=== PATIENT | male | born 1995 ===

== ENCOUNTER 2017-05-04 11:14 | Emergency (ER) | payer SELFPAY ==
[~2017-05-04] VITALS: Ht 175.3 cm; Wt 80.0 kg
[2017-05-04 11:17] VITALS: BP 130/68; PULSE 86; RESP 16; TEMP 97.6; O2SAT 98
--- NOTE | 2017-05-04 11:43 | PD ---
HPI Chief Complaint: Complaint Time Seen by Provider: 11:25 Travel History International Travel<30 days: No Contact w/Intl Traveler<30days: No Traveled to known affect area: No History of Present Illness HPI 21-year-old male presents to the ED for evaluation of 2 day history of dysuria. Patient denies fevers, chills, abdominal pain, nausea, vomiting, testicular pain. He endorses a small painless area on tip of the penis. Patient endorses sex with a single male partner. He states that his partner just tested positive for syphilis, gonorrhea and chlamydia. PFSH Social History Tobacco Use: No Allergies-Medications (Allergen,Severity, Reaction): Coded Allergies: No Known Allergies (Unverified , 05/04/17) Review of Systems Except as stated in HPI: all other systems reviewed are Neg Physical Exam Narrative GENERAL: Well-nourished, well-developed male in no acute distress. SKIN: Focused skin assessment warm/dry. HEAD: Normocephalic. EYES: No scleral icterus. No injection or drainage. NECK: Supple, trachea midline. No JVD or lymphadenopathy. CARDIOVASCULAR: Regular rate and rhythm without murmurs, gallops, or rubs. RESPIRATORY: Breath sounds equal bilaterally. No accessory muscle use. GASTROINTESTINAL: Abdomen soft, non-tender, nondistended. Active bowel sounds. GENITOURINARY: Circumcised. Testes descended bilaterally without evidence of rotation. Single erythematous, nontender subcentimeter lesion on the tip of the penis. No erythema or lesions. No urethral discharge. MUSCULOSKELETAL: No cyanosis, or edema. BACK: Nontender without obvious deformity. No CVA tenderness. Data Data Last Documented VS Vital Signs Date Time Temp Pulse Resp B/P (MAP) Pulse Ox O2 Delivery O2 Flow Rate FiO2 05/04/17 11:17 97.6 86 16 130/68 (88) 98 Orders Orders Urinalysis - C+S If Indicated (05/04/17 11:23) Gc And Chlamydia Pcr (05/04/17 11:23) Azithromycin (Zithromax) (05/04/17 11:45) Ceftriaxone Inj (Rocephin Inj) (05/04/17 11:45) Penicillin G Benzathine Inj (Bicillin L- (05/04/17 11:45) Lidocaine Pf 1% Inj (Xylocaine-Mpf 1% In (05/04/17 12:15) Ed Discharge Order (05/04/17 12:09) Labs Laboratory Tests Test 05/04/17 11:30 Urine Color LIGHT-YELLOW Urine Turbidity CLEAR Urine pH 6.5 Urine Specific [place] 1.019 Urine Protein NEG mg/dL Urine Glucose (UA) NEG mg/dL Urine Ketones 10 mg/dL Urine Occult Blood NEG Urine Nitrite NEG Urine Bilirubin NEG Urine Urobilinogen LESS THAN 2.0 MG/DL Urine Leukocyte Esterase NEG Urine WBC LESS THAN 1 /hpf Urine Squamous Epithelial Cells <1 /hpf Microscopic Urinalysis Comment CULT NOT INDICATED MDM Medical Decision Making Medical Screen Exam Complete: Yes Emergency Medical Condition: Yes Differential Diagnosis UTI versus gonorrhea versus chlamydia versus syphilis versus other Narrative Course 21-year-old male presents to the ED for evaluation of 2 day history of dysuria. Patient denies fevers, chills, abdominal pain, nausea, vomiting, testicular pain. He endorses a small painless area on tip of the penis. Patient endorses sex with a single male partner. He states that his partner just tested positive for syphilis, gonorrhea and chlamydia. Vitals reviewed. On exam there is a subcentimeter erythematous, coin-shaped, nontender lesion of the tip of the penis. Exam otherwise unremarkable. Patient was treated empirically for gonorrhea, chlamydia, syphilis. No culture indicated of the UA. He is instructed to abstain from sex, notify all partners of symptoms, follow with the health Department for test of cure and a full battery of STD testing before resuming sexual activities. He indicated understanding of instructions. He is agreeable the care plan. He is stable and discharged home. Diagnosis Primary Impression: Exposure to STD Referrals: [facility]. Additional Instructions: USE CONDOMS in all sexual encounters. Abstain from sex until test of cure is proven. Follow up with the health department for a full battery of STD testing. Return to the ED for any urgent/ emergent medical condition. Disposition: 01 DISCHARGE HOME Condition: Stable Seda Vargas May 04, 2017 11:43
[2017-05-04] MEDS ORDERED: LIDOCAINE HCL 1% 50 ML VIAL XX ONE (11:45)
[2017-05-04] MEDS ORDERED: AZITHROMYCIN 250 MG TAB PO ONE (11:45)
[2017-05-04] MEDS ORDERED: PENICILLIN G BENZATHINE 2,400,000 UNITS/4 ML SYRINGE IM ONE (11:45)
[2017-05-04 12:06] LABS: BILIRUBIN, URINE NEG (NEG); BLOOD, URINE NEG (NEG); GLUCOSE,URINE NEG (NEG); KETONE, URINE 10 mg/dL (NEG); NITRITE,URINE NEG (NEG); PH, URINE 6.5 (5.0-8.5); SQUAMOUS EPITHELIAL CELL URINE <1 /hpf (0-5); URINE COLOR LIGHT-YELLOW (YELLW/STRAW); URINE LEUKOCYTE ESTERASE NEG (NEG)
[2017-05-04] MEDS ORDERED: LIDOCAINE HCL 1% PF 2 ML VIAL INFIL ONE (12:15)
[2017-05-04] MEDS ORDERED: LIDOCAINE HCL 1% PF 30 ML VIAL INFIL ONE (13:00)
== END 2017-05-04 13:36 | disposition home or self-care (01) ==
LOC: NEPK 11:14
DX: R30.0 Dysuria (principal); Z20.2 Contact with and (suspected) exposure to infections with a predominantly sexual mode of transmission
CPT/HCPCS: 81001; 87491; 87591; 96372; 99283; J0561; J0696

== ENCOUNTER 2017-05-08 07:46 | Emergency (ER) | payer SELFPAY ==
[~2017-05-08] VITALS: Ht 175.3 cm; Wt 83.0 kg
[2017-05-08 08:06] VITALS: BP 147/66; PULSE 88; RESP 20; TEMP 97.7; O2SAT 99
[2017-05-08] MEDS ORDERED: BACT800T5 PO (09:27)
--- NOTE | 2017-05-08 09:36 | PD ---
HPI Chief Complaint: Skin Problem Time Seen by Provider: 09:21 Travel History International Travel<30 days: No Contact w/Intl Traveler<30days: No Traveled to known affect area: No History of Present Illness HPI 21-year-old male presents to the emergency room for evaluation of a red, warm, tender area to his right buttocks that started yesterday. Patient was treated empirically for gonorrhea, chlamydia, and syphilis with 2 IM injections 4 days ago on his right buttocks. States he had no problems until yesterday when he developed a small quarter-size area of painful redness and swelling. The area did not develop until a few hours after patient self injected anabolic steroids to the same buttocks. States he has been doing this every year for the past 4 years without problem. He has not taken anything or done anything for his symptoms. Patient denies fever, chills, nausea, or vomiting. No chronic medical conditions or daily medications. PFSH Past Medical History Medical History: Denies Significant Hx Tetanus Vaccination: < 5 Years Past Surgical History Surgical History: No Previous Surgery Social History Alcohol Use: No Tobacco Use: No Substance Use: No Allergies-Medications (Allergen,Severity, Reaction): Coded Allergies: No Known Allergies (Unverified , 05/08/17) Reported Meds & Prescriptions Reported Meds & Active Scripts Active No Active Prescriptions or Reported Medications Review of Systems Except as stated in HPI: all other systems reviewed are Neg Physical Exam Narrative GENERAL: Well-nourished, well-developed male in no acute distress. Afebrile. Ambulatory. SKIN: Focused skin assessment warm/dry. There is an indurated, erythematous area in the right buttock which measures about 4 cm in diameter. No fluctuance , pointing, or drainage. No lymphangitis. HEAD: Normocephalic. EYES: No scleral icterus. No injection or drainage. NECK: Supple, trachea midline. No JVD or lymphadenopathy. CARDIOVASCULAR: Regular rate and rhythm without murmurs, gallops, or rubs. RESPIRATORY: Breath sounds equal bilaterally. No accessory muscle use. MUSCULOSKELETAL: No cyanosis, or edema. Data Data Last Documented VS Vital Signs Date Time Temp Pulse Resp B/P (MAP) Pulse Ox O2 Delivery O2 Flow Rate FiO2 05/08/17 08:06 97.7 88 20 147/66 (93) 99 MDM Medical Decision Making Medical Screen Exam Complete: Yes Emergency Medical Condition: Yes Medical Record Reviewed: Yes Differential Diagnosis Cellulitis, injection site infection, inflammation, abscess Narrative Course 21-year-old otherwise healthy male presents to the emergency room for evaluation of a red, painful bump to his buttocks that started yesterday as a small quarter size and has grown into about 4 cm. Patient denies systemic signs of infection. Vital signs stable. He got 2 IM injections 4 days ago for STDs on that side and then self injected anabolic steroids last night on the same side. He did not notice it until a few hours after injecting anabolic steroids last night. Physical exam reveals a 4 cm area of induration/ cellulitis. No fluctuance or abscess. Patient discharged with Bactrim and told to follow-up with the PCP return for worsening symptoms. He understands and agrees to plan per Diagnosis Primary Impression: Cellulitis of right buttock Referrals: Primary Care Physician Additional Instructions: Rest and drink plenty of fluids. Take Bactrim as directed, until gone. Follow up with a primary care physician. Return to emergency room for worsening symptoms, as discussed. Med/Other Pt SpecificInfo: Prescription(s) given Scripts Sulfamethoxazole-Trimethoprim (Bactrim DS) 800-160 Mg Tab 1 TAB PO BID for Infection, #20 TAB 0 Refills Prov: Rae Fischer MD 05/08/17 Disposition: 01 DISCHARGE HOME Condition: Stable Nory Gomez May 08, 2017 09:36
== END 2017-05-08 09:47 | disposition home or self-care (01) ==
LOC: NEPK 07:46
DX: L03.317 Cellulitis of buttock (principal)
CPT/HCPCS: 99283